=== PATIENT | female | born 1960 | race African-American/Black ===

== ENCOUNTER 2021-01-03 10:13 | Inpatient (IN) | payer BC, OTHER ==
[~2021-01-03] VITALS: Ht 166.4 cm; Wt 122.4 kg
--- NOTE | 2021-01-03 10:27 | PHYS DOC ---
Past History Past Medical History: Hypertension (CHANCE PALACIOS Efrain RAGSDALE) Past Surgical History: No Surgical History (CHANCE PALACIOS ) Smoking: Non-smoker Alcohol Use: Rarely Drug Use: None (CHANCE PALACIOS ) General Adult EDM: Chief Complaint: OTHER COMPLAINTS HPI: HPI: Patient is a 60-year-old female who presents to the emergency department for a 3-week history of chest pain. Patient reports that she experiences intermittent right-sided chest pain that radiates to her neck. The pain lasts approximately 15 minutes and is resolved after she places an ice pack on her chest. Patient describes the pain as an ache. She denies experiencing shortness of breath, nausea, vomiting or dizziness associated with her chest pain. She is not having the pain currently. Patient has an appointment with Dr. Rubio in 2 days for reevaluation for her chest pain. Patient has a history of hypertension. She states that her mother of a heart attack in her 70s and her sister had a heart attack in her 60s. (JANETH RUSHING APRN) Review of Systems: Review of Systems: 14 body systems of the review of systems have been reviewed. See HPI for pertinent positive and negative responses, otherwise all other systems are negative, nonpertinent or noncontributory (JANETH RUSHING APRN) Allergies: Allergies: Allergies Coded Allergies Type Severity Reaction Last Updated Verified Sulfa (Sulfonamide Antibiotics) Allergy Unknown 01/03/21 Yes (JANETH RUSHING APRN) Physical Exam: PE: Constitutional: Well developed, well nourished, no acute distress, non-toxic appearance. [] HENT: Normocephalic, atraumatic, bilateral external ears normal, oropharynx moist, no oral exudates, nose normal. [] Eyes: PERRL, EOMI, conjunctiva normal, no discharge. [] Neck: Normal range of motion, no stridor Cardiovascular:Heart rate regular rhythm, no murmur [] Lungs & Thorax: Bilateral breath sounds clear to auscultation [] Abdomen: Bowel sounds normal, soft, no tenderness, no masses, obese, no pulsatile masses. [] Skin: Warm, dry, no erythema, no rash. [] Back: Normal range of motion Extremities: No tenderness, no cyanosis, no clubbing, ROM intact, no edema. [] Neurologic: Alert and oriented X 3, normal motor function, normal sensory function, no focal deficits noted. [] Psychologic: Affect normal, judgement normal, mood normal. [] (JANETH RUSHING APRN) Current Patient Data: Labs: Laboratory Tests Test 01/03/21 10:26 White Blood Count 4.8 x10^3/uL Red Blood Count 3.90 x10^6/uL Hemoglobin 11.8 g/dL Hematocrit 36.8 % Mean Corpuscular Volume 94 fL Mean Corpuscular Hemoglobin 30 pg Mean Corpuscular Hemoglobin Concent 32 g/dL Red Cell Distribution Width 15.7 % Platelet Count 272 x10^3/uL Neutrophils (%) (Auto) 72 % Lymphocytes (%) (Auto) 21 % Monocytes (%) (Auto) 5 % Eosinophils (%) (Auto) 1 % Basophils (%) (Auto) 1 % Neutrophils # (Auto) 3.5 x10^3uL Lymphocytes # (Auto) 1.0 x10^3/uL Monocytes # (Auto) 0.3 x10^3/uL Eosinophils # (Auto) 0.0 x10^3/uL Basophils # (Auto) 0.0 x10^3/uL Urine Collection Type Unknown Urine Color Straw Urine Clarity Clear Urine pH 7.5 Urine Specific [place] 1.020 Urine Protein 100 mg/dl Urine Glucose (UA) Neg mg/dL Urine Ketones (Stick) Neg mg/dL Urine Blood Neg Urine Nitrite Neg Urine Bilirubin Neg Urine Urobilinogen Dipstick 0.2 mg/dL Urine Leukocyte Esterase Mod Urine RBC 0 /HPF Urine WBC 5-10 /HPF Urine Squamous Epithelial Cells Occ /LPF Urine Transitional Epithelial Cells Occ /LPF Urine Bacteria 0 /HPF Sodium Level 142 mmol/L Potassium Level 4.0 mmol/L Chloride Level 104 mmol/L Carbon Dioxide Level 29 mmol/L Anion Gap 9 Blood Urea Nitrogen 16 mg/dL Creatinine 1.2 mg/dL Estimated GFR (Cockcroft-Gault) 55.4 BUN/Creatinine Ratio 13 Glucose Level 92 mg/dL Calcium Level 9.4 mg/dL Total Bilirubin 0.5 mg/dL Aspartate Amino Transf (AST/SGOT) 15 U/L Alanine Aminotransferase (ALT/SGPT) 23 U/L Alkaline Phosphatase 84 U/L Troponin I Quantitative < 0.017 ng/mL Total Protein 8.3 g/dL Albumin 3.9 g/dL Albumin/Globulin Ratio 0.9 Current Medications Medications (Trade) Dose Ordered Sig/Gretchen Route PRN Reason Start Time Stop Time Status Last Admin Dose Admin Aspirin (Aspirin Chewable) 324 mg 1X ONCE PO 01/03/21 10:30 01/03/21 10:33 DC 01/03/21 10:47 Clonidine HCl (Catapres) 0.1 mg 1X ONCE PO 01/03/21 10:45 01/03/21 10:46 DC 01/03/21 10:46 Labetalol HCl (Normodyne) 10 mg 1X ONCE IVP 01/03/21 10:45 01/03/21 10:46 DC 01/03/21 10:47 Hydralazine HCl (Apresoline) 10 mg 1X ONCE IV 01/03/21 11:15 01/03/21 11:21 DC 01/03/21 11:23 (JANETH RUSHING APRN) EKG: EKG: EKG performed by ER staff at 1027 shows sinus rhythm with a rate of 69, QTC of 394, no STEMI read by Dr. Palacios at 1035 [] (JANETH RUSHING APRN) Radiology/Procedures: Radiology/Procedures: [] (JANETH RUSHING APRN) Heart Score: C/O Chest Pain: Yes HEART Score for Chest Pain: HEART Score for Chest Pain Response (Comments) Value History Slighlty/Non-Suspicious 0 ECG Normal 0 Age >45 - < 65 1 Risk Factors >3 Risk Factors or Hx CAD 2 Troponin < Normal Limit 0 Total 3 Risk Factors: Risk Factors: DM, Current or recent (<one month) smoker, HTN, HLP, family history of CAD, obesity. Risk Scores: Score 0 - 3: 2.5% MACE over next 6 weeks - Discharge Home Score 4 - 6: 20.3% MACE over next 6 weeks - Admit for Clinical Observation Score 7 - 10: 72.7% MACE over next 6 weeks - Early Invasive Strategies (JANETH RUSHING APRN) Course & Med Decision Making: Course & Med Decision Making Pertinent Labs and Imaging studies reviewed. (See chart for details) Patient presents to the emergency department for intermittent chest pain x3 weeks. Work-up in the ER consisted of blood work, EKG, chest x-ray. Patient is not having chest pain currently while in the ER. Patient was treated with aspirin. Patient's blood pressure was elevated in the emergency department. She was given hydralazine, labetalol and clonidine and her blood pressure remained 217/116. Patient's heart score is 3. Her chest x-ray showed mild diffuse interstitial prominence. Patient's urinalysis shows 5-10 WBCs, moderate leukocytes but moderate epithelial cells and no bacteria likely contaminated. Patient states that she takes atenolol, clonidine and a diuretic but daughter states that she has not been taking her clonidine. I discussed patient's case with Dr. Sanford and he agreed to admit the patient under his services. I discussed patient's findings with her and her daughter and they are agreeable to admission . Orders placed. Care transferred at this time 1149. (JANETH RUSHING APRN) Dragon Disclaimer: Ignacia Disclaimer: This electronic medical record was generated, in whole or in part, using a voice recognition dictation system. (JANETH RUSHING APRN) Departure Departure: Impression: Primary Impression: Labile hypertension Additional Impression: Renal insufficiency Disposition: ADMITTED INPATIENT Admitting Physician: Giovanni Sanford (JANETH RUSHING APRN) Admitting Physician: Giovanni Sanford (CHANCE PALACIOS DO) Condition: STABLE Referrals: ASHLEY VAUGHAN (PCP) Attending Signature Attending Signature I have reviewed the PA/VISITING PROFESSOR's note and plan of care. I was available for consultation as needed during the patient's visit in the emergency department. I agree with the clinical impression, plan, and disposition. (CHANCE PALACIOS DO) JANETH RUSHING APRN Jan 03, 2021 10:27 CHANCE PALACIOS DO Jan 03, 2021 13:39
[2021-01-03] MEDS ORDERED: ASPIRIN CHEWABLE 81 MG TABLET. PO ONE (10:30)
--- NOTE | 2021-01-03 10:42 | EKG ---
[address] [address] Test Date: 2021-01-03 Test Time: 10:27:33 Pat Name: BRANT CORDON Department: Room: Gender: F Security Coordinator: SATISH : 1960 Requested By: JANETH RUSHING Order Number: [id number] Reading MD: Nicho Larios Measurements Intervals [place] Rate: 69 P: 51 DC: 138 QRS: 0 QRSD: 88 T: 54 QT: 366 QTc: 394 Interpretive Statements SINUS RHYTHM LEFTWARD AXIS Electronically Signed On 01-04-2021 16:01:41 CDT by Nicho Larios
[2021-01-03] MEDS ORDERED: cloNIDine HCL 0.1 MG TABLET PO ONE (10:45)
[2021-01-03] MEDS ORDERED: LABETALOL 20 MG/4 ML DISP.SYRIN. IVP ONE (10:45)
--- NOTE | 2021-01-03 11:02 | RAD ---
EXAM: Chest, single view. HISTORY: Chest pain. COMPARISON: None. FINDINGS: A frontal view of the chest obtained. There is mild diffuse increased interstitial opacity. There is no consolidation, pleural effusion or pneumothorax. There is a prominent cardiac silhouette , likely accentuated due to portable technique. There are surgical clips overlying the neck. IMPRESSION: Mild diffuse interstitial prominence without curtis congestion. No consolidated infiltrate is seen. Electronically signed by: Ciera Self MD (01/03/2021 11:00 AM) [id number]
[2021-01-03 11:03] LABS: CALCIUM 9.4 mg/dL (8.5-10.1); CREATININE 1.2 mg/dL (0.6-1.0); GFR 55.4
[2021-01-03 11:04] LABS: BASO % 1 % (0-3); EOS % 1 % (0-3); HEMATOCRIT 36.8 % (36.0-47.0); HEMOGLOBIN 11.8 g/dL (12.0-15.5); LYMPH % 21 % (24-48); MEAN CORPUSCULAR HEMOGLOBIN 30 pg (25-35); MEAN CORPUSCULAR HGB CONC 32 g/dL (31-37); MEAN CORPUSCULAR VOLUME 94 fL (79-100); MONO # 0.3 x10^3/uL (0.0-1.1); MONO % 5 % (0-9); NEUT # 3.5 x10^3uL (1.8-7.7); NEUT % 72 % (31-73); PLATELET COUNT 272 x10^3/uL (140-400); RED CELL DISTRIBUTION WIDTH 15.7 % (11.5-14.5); WHITE BLOOD COUNT 4.8 x10^3/uL (4.0-11.0)
[2021-01-03 11:07] LABS: BILIRUBIN,URINE NEG (NEG); CLARITY,URINE CLEAR; COLOR,URINE STRAW; GLUCOSE,URINE NEG (NEG); NITRITE,URINE NEG (NEG); RBC,URINE 0 /HPF (0-2); UROBILINOGEN,URINE 0.2 mg/dL (0.2 mg/dL)
[2021-01-03 11:08] LABS: ALBUMIN 3.9 g/dL (3.4-5.0); ALBUMIN/GLOBULIN RATIO 0.9 (1.0-1.7); BACTERIA,URINE 0 /HPF (0-FEW); SQUAMOUS EPITHELIAL CELL,UR OCC /LPF; TOTAL BILIRUBIN 0.5 mg/dL (0.2-1.0); TOTAL PROTEIN 8.3 g/dL (6.4-8.2)
[2021-01-03] MEDS ORDERED: hydrALAZINE 20 MG/ML VIAL. IV ONE (11:15)
[2021-01-03 13:25] VITALS: BP 164/96
[2021-01-03 15:00] VITALS: BP 176/108
[2021-01-03] MEDS ORDERED: LISI40TA6 PO (15:09)
[2021-01-03] MEDS ORDERED: ATEN50TA PO (15:09)
[2021-01-03] MEDS ORDERED: LEVO125T5 PO (15:09)
[2021-01-03] MEDS ORDERED: AMLO-186 PO (15:09)
[2021-01-03] MEDS ORDERED: LISINOPRIL 20 MG TABLET PO ONE (15:15)
[2021-01-03 19:10] VITALS: BP 174/91
[2021-01-03] MEDS: ATENOLOL 50 MG TABLET PO SCH (20:29)
[2021-01-03 22:52] VITALS: BP 161/102
[2021-01-04 05:38] VITALS: BP 151/94
[2021-01-04] MEDS: LEVOTHYROXINE 125 MCG TABLET PO SCH (06:01)
[2021-01-04 06:19] LABS: BASO % 1 % (0-3); EOS # 0.1 x10^3/uL (0.0-0.7); EOS % 2 % (0-3); HEMATOCRIT 32.1 % (36.0-47.0); HEMOGLOBIN 10.4 g/dL (12.0-15.5); LYMPH # 1.1 x10^3/uL (1.0-4.8); LYMPH % 30 % (24-48); MEAN CORPUSCULAR HEMOGLOBIN 30 pg (25-35); MEAN CORPUSCULAR HGB CONC 33 g/dL (31-37); MEAN CORPUSCULAR VOLUME 94 fL (79-100); MONO # 0.3 x10^3/uL (0.0-1.1); MONO % 9 % (0-9); NEUT # 2.1 x10^3uL (1.8-7.7); NEUT % 59 % (31-73); PLATELET COUNT 223 x10^3/uL (140-400); RED BLOOD COUNT 3.42 x10^6/uL (3.50-5.40); RED CELL DISTRIBUTION WIDTH 15.9 % (11.5-14.5); WHITE BLOOD COUNT 3.6 x10^3/uL (4.0-11.0)
[2021-01-04 06:54] LABS: ALBUMIN 3.2 g/dL (3.4-5.0); ALBUMIN/GLOBULIN RATIO 0.8 (1.0-1.7); CALCIUM 8.8 mg/dL (8.5-10.1); CREATININE 1.1 mg/dL (0.6-1.0); GFR 61.3; POTASSIUM 3.7 mmol/L (3.5-5.1); TOTAL BILIRUBIN 0.5 mg/dL (0.2-1.0)
[2021-01-04] MEDS: ATENOLOL 50 MG TABLET PO SCH ×2 (08:44→20:18)
[2021-01-04] MEDS: LISINOPRIL 20 MG TABLET PO SCH (08:45)
--- NOTE | 2021-01-04 08:58 | PDOC2 ---
CARDIAC CONSULT DATE OF CONSULT DOS: DATE: 01/04/21 TIME: 08:53 REASON FOR CONSULT Reason for Consult uncontrolled HTN REFERRING PHYSICIAN Referring Physician Dr. Alba SOURCE Source: Chart review, Patient HPI History of Present Illness This is a 60 yo female who presented secondary to 3 week history of aching pain in her right chest and neck chest. Reports pain to be constant. Used heating pad with some improvement. Blood pressure significantly elevated, which prompted this consult. She denies any dizziness, shortness of breath, palpitations, nausea/vomiting. diaphoresis, or left sided chest pain. No recent illness or injury. No previous cardiac workup. PAST MEDICAL HISTORY Cardiovascular: HTN Endocrine: Hypothyroidism (acquired ) PAST SURGICAL HISTORY Past Surgical History: Total knee replacement (right ), Other (thyroidectomy, left ankle surgey with hardware ) FAMILY HISTORY Family History: Diabetes, Hypertension, Other (leukemia ) SOCIAL HISTORY Smoke: No ALCOHOL: none Drugs: None Lives: Alone CURRENT MEDICATIONS Current Medications Current Medications Aspirin (Aspirin Chewable) 324 mg 1X ONCE PO Last administered on 01/03/21at 10:47; Start 01/03/21 at 10:30; Stop 01/03/21 at 10:33; Status DC Clonidine HCl (Catapres) 0.1 mg 1X ONCE PO Last administered on 01/03/21at 10:46; Start 01/03/21 at 10:45; Stop 01/03/21 at 10:46; Status DC Labetalol HCl (Normodyne) 10 mg 1X ONCE IVP Last administered on 01/03/21at 10:47; Start 01/03/21 at 10:45; Stop 01/03/21 at 10:46; Status DC Hydralazine HCl (Apresoline) 10 mg 1X ONCE IV Last administered on 01/03/21at 11:23; Start 01/03/21 at 11:15; Stop 01/03/21 at 11:21; Status DC Atenolol (Tenormin) 50 mg BID PO Last administered on 01/04/21at 08:44; Start 01/03/21 at 21:00 Lisinopril (Prinivil) 40 mg 1X ONCE PO Last administered on 01/03/21at 15:59; Start 01/03/21 at 15:15; Stop 01/03/21 at 15:21; Status DC Levothyroxine Sodium (Synthroid) 125 mcg DAILY06 PO Last administered on 01/04/21at 06:01; Start 01/04/21 at 06:00 Lisinopril (Prinivil) 40 mg DAILY PO Last administered on 01/04/21at 08:45; Start 01/04/21 at 09:00 Amlodipine Besylate (Norvasc) 10 mg DAILY PO Last administered on 01/04/21at 08:44; Start 01/04/21 at 09:00 Active Scripts Active Reported Amlodipine Besylate 5 Mg Tablet 1 Tab PO DAILY Atenolol (Atenolol) 50 Mg Tablet 50 Mg PO DAILY Lisinopril 40 Mg Tablet 1 Tab PO DAILY Levothyroxine Sodium 125 Mcg Tablet 1 Tab PO DAILY ALLERGIES Allergies: Coded Allergies: Sulfa (Sulfonamide Antibiotics) (Verified Allergy, Unknown, 01/03/21) ROS Review of Systems 14 point ROS conducted with pertinent positives noted above in HPI PHYSICAL EXAM General: Alert, Oriented X3, Cooperative, No acute distress HEENT: Atraumatic Lungs: Clear to auscultation Heart: Regular rate Abdomen: Soft, Other (obese) Extremities: Normal pulses, Other (trace bilateral LE edema ) Skin: No breakdown Neuro: Normal speech, Sensation intact Psych/Mental Status: Mental status NL, Mood NL MUSCULOSKELETAL: Osteoarthritic changes both hands VITALS Vital Signs Vital Signs Date Time Temp Pulse Resp B/P (MAP) Pulse Ox O2 Delivery O2 Flow Rate FiO2 01/04/21 08:45 67 151/94 01/04/21 05:38 97.5 18 97 Room Air LABS LABS Laboratory Tests Test 01/03/21 10:26 01/03/21 12:26 01/04/21 05:41 White Blood Count 4.8 x10^3/uL (4.0-11.0) 3.6 x10^3/uL (4.0-11.0) Red Blood Count 3.90 x10^6/uL (3.50-5.40) 3.42 x10^6/uL (3.50-5.40) Hemoglobin 11.8 g/dL (12.0-15.5) 10.4 g/dL (12.0-15.5) Hematocrit 36.8 % (36.0-47.0) 32.1 % (36.0-47.0) Mean Corpuscular Volume 94 fL (79-100) 94 fL (79-100) Mean Corpuscular Hemoglobin 30 pg (25-35) 30 pg (25-35) Mean Corpuscular Hemoglobin Concent 32 g/dL (31-37) 33 g/dL (31-37) Red Cell Distribution Width 15.7 % (11.5-14.5) 15.9 % (11.5-14.5) Platelet Count 272 x10^3/uL (140-400) 223 x10^3/uL (140-400) Neutrophils (%) (Auto) 72 % (31-73) 59 % (31-73) Lymphocytes (%) (Auto) 21 % (24-48) 30 % (24-48) Monocytes (%) (Auto) 5 % (0-9) 9 % (0-9) Eosinophils (%) (Auto) 1 % (0-3) 2 % (0-3) Basophils (%) (Auto) 1 % (0-3) 1 % (0-3) Neutrophils # (Auto) 3.5 x10^3uL (1.8-7.7) 2.1 x10^3uL (1.8-7.7) Lymphocytes # (Auto) 1.0 x10^3/uL (1.0-4.8) 1.1 x10^3/uL (1.0-4.8) Monocytes # (Auto) 0.3 x10^3/uL (0.0-1.1) 0.3 x10^3/uL (0.0-1.1) Eosinophils # (Auto) 0.0 x10^3/uL (0.0-0.7) 0.1 x10^3/uL (0.0-0.7) Basophils # (Auto) 0.0 x10^3/uL (0.0-0.2) 0.0 x10^3/uL (0.0-0.2) Urine Collection Type Unknown Urine Color Straw Urine Clarity Clear Urine pH 7.5 Urine Specific [place] 1.020 Urine Protein 100 mg/dl (NEG-TRACE) Urine Glucose (UA) Neg mg/dL (NEG) Urine Ketones (Stick) Neg mg/dL (NEG) Urine Blood Neg (NEG) Urine Nitrite Neg (NEG) Urine Bilirubin Neg (NEG) Urine Urobilinogen Dipstick 0.2 mg/dL (0.2 mg/dL) Urine Leukocyte Esterase Mod (NEG) Urine RBC 0 /HPF (0-2) Urine WBC 5-10 /HPF (0-4) Urine Squamous Epithelial Cells Occ /LPF Urine Transitional Epithelial Cells Occ /LPF Urine Bacteria 0 /HPF (0-FEW) Sodium Level 142 mmol/L (136-145) 139 mmol/L (136-145) Potassium Level 4.0 mmol/L (3.5-5.1) 3.7 mmol/L (3.5-5.1) Chloride Level 104 mmol/L (98-107) 104 mmol/L (98-107) Carbon Dioxide Level 29 mmol/L (21-32) 30 mmol/L (21-32) Anion Gap 9 (6-14) 5 (6-14) Blood Urea Nitrogen 16 mg/dL (7-20) 16 mg/dL (7-20) Creatinine 1.2 mg/dL (0.6-1.0) 1.1 mg/dL (0.6-1.0) Estimated GFR (Cockcroft-Gault) 55.4 61.3 BUN/Creatinine Ratio 13 (6-20) 15 (6-20) Glucose Level 92 mg/dL (70-99) 88 mg/dL (70-99) Calcium Level 9.4 mg/dL (8.5-10.1) 8.8 mg/dL (8.5-10.1) Total Bilirubin 0.5 mg/dL (0.2-1.0) 0.5 mg/dL (0.2-1.0) Aspartate Amino Transf (AST/SGOT) 15 U/L (15-37) 14 U/L (15-37) Alanine Aminotransferase (ALT/SGPT) 23 U/L (14-59) 20 U/L (14-59) Alkaline Phosphatase 84 U/L (46-116) 70 U/L (46-116) Troponin I Quantitative < 0.017 ng/mL (0-0.055) Total Protein 8.3 g/dL (6.4-8.2) 7.0 g/dL (6.4-8.2) Albumin 3.9 g/dL (3.4-5.0) 3.2 g/dL (3.4-5.0) Albumin/Globulin Ratio 0.9 (1.0-1.7) 0.8 (1.0-1.7) Coronavirus (COVID-19)(PCR) Not detected (NOT DETECTD) SARS-CoV-2 Antigen (Rapid) Negative (NEGATIVE) ASSESSMENT/PLAN Assessment/Plan 1. Chest pain, atypical; initial trop negative 2. Hypertensive urgency; improved, but remains slightly elevated 3. Hypothyroidism, acquired 4. Leukopenia 5. Obesity 6. GURPREET; noncompliant with CPAP 7. Arrhythmia; 20-beat burst of NSVT noted this am on tele. Recommendations Repeat troponin Add ASA Lipids, TSH, Mg level Echo to assess LV systolic function Add HCTZ Monitor BP trends with adjustment of meds Hydralazine IV PRN Encouraged compliance with home CPAP Outpatient ischemic evaluation ERICA BARAKAT APRN Jan 04, 2021 08:58
[2021-01-04] MEDS ORDERED: hydrALAZINE 20 MG/ML VIAL. IV PRN (09:00)
[2021-01-04] MEDS ORDERED: amLODIPine BESYLATE 10 MG TABLET PO SCH (09:00)
[2021-01-04] MEDS: hydroCHLOROthiazide 25 MG TABLET. PO SCH (09:49)
[2021-01-04 10:53] VITALS: BP 167/98
[2021-01-04 15:08] VITALS: BP 139/81
[2021-01-04 16:16] LABS: THYROID STIM HORMONE (TSH) 0.192 uIU/mL (0.358-3.740)
[2021-01-04 20:27] VITALS: BP 144/85
[2021-01-04 23:15] VITALS: BP 117/74
--- NOTE | 2021-01-05 00:46 | PN ---
DATE: 01/04/2021 SUBJECTIVE: The patient is a 60-year-old female patient, who was admitted with what seemed to be atypical chest pain, and her acute myocardial infarction was ruled out; however, her blood pressure was extremely high and multiple adjustments of her antihypertensive medication was made; however, her blood pressure continues to be suboptimally controlled. She is now on hydrochlorothiazide, amlodipine, lisinopril as well as atenolol; she is, in fact, on 100 mg of atenolol, 40 mg of lisinopril, 10 mg of amlodipine and hydrochlorothiazide. She herself denied any further episode of chest pain. Denied any shortness of breath, orthopnea, paroxysmal nocturnal dyspnea. Denied any swelling of the legs. PHYSICAL EXAMINATION: GENERAL: When I examined her this afternoon, she looked well and was clearly in no apparent respiratory distress. She was somewhat pale, but no jaundice, cyanosis or thyromegaly. No jugular venous distention. No lower limb edema. VITAL SIGNS: Her heart rate was 64, blood pressure was 167/98, temperature 97.8, respiratory rate 20 and oxygen saturation was 99% on room air. HEAD, EYES, EARS, NOSE AND THROAT: Normocephalic, atraumatic. NECK: Supple. HEART: Showed normal first and second heart sounds. No gallop, rub or murmur. CHEST: Clear to auscultation. No crepitation or rhonchi. ABDOMEN: Distended, soft, nontender. NEUROLOGIC: She was grossly intact. LABORATORY DATA: As of this morning showed a white cell count of 3,600, hemoglobin 10, hematocrit 32, MCV 94, platelet count 223,000. Her chemistry showed serum sodium 139, potassium 3.7, chloride 104, bicarbonate 30, anion gap of 5, BUN 16, creatinine 1.1. Estimated GFR was 61 mL per minute. Her glucose was 88, calcium was 8.8, magnesium 2.3. Total bilirubin, AST, ALT, alkaline phosphatase were normal. Total protein 7, albumin was 3.2. She had 2 sets of cardiac enzymes, showed troponin to be less than 0.07, ruling out acute myocardial infarction. ASSESSMENT: Chest pain, atypical; acute myocardial infarction was ruled out. Hypertensive urgency, improved, but still not optimally controlled. Hypothyroidism, for which she is on levothyroxine. She has obstructive sleep apnea. She apparently had an episode of nonsustained ventricular tachycardia noted this morning on the telemetry. She has mild leukopenia. PLAN: My plan is to discontinue amlodipine and start her on Procardia as her heart rate is borderline. She has an order for an echocardiogram and other lab work ordered. KAILA DR: KAILA/christ TID: [id number]
[2021-01-05 05:42] VITALS: BP 139/84
[2021-01-05] MEDS: LEVOTHYROXINE 125 MCG TABLET PO SCH (06:14)
[2021-01-05] MEDS ORDERED: ASPIRIN ENTERIC COATED 81 MG TABLET.DR. PO SCH (08:00)
--- NOTE | 2021-01-05 08:05 | RAD ---
EXAM: Zheng scale and color Doppler renal artery sonogram. HISTORY: Hypertensive urgency. TECHNIQUE: Zheng scale and color Doppler sonographic imaging of the kidneys and renal arteries with sp ectral waveform analysis was performed. COMPARISON: None. FINDINGS: The exam is limited due to patient body habitus. The kidneys are normal in size. No solid o r cystic renal lesion is seen. There is no hydronephrosis. The prevoid bladder volume is 74 cc. There are normal peak systolic velocities within the right renal artery. There is elevated peak systo lic velocity within the mid left renal artery measuring 191 cm/s. There is an upper limits of normal peak systolic velocity within the proximal left renal artery measuring 178 cm/s. IMPRESSION: 1. Doppler findings suggesting greater than 60 percent stenosis involving the mid left renal artery a nd near 60 percent stenosis involving the proximal left renal artery. 2. Doppler findings consistent with less than 60 percent stenosis involving the right renal artery. 3. Unremarkable grayscale evaluation of the kidneys. Electronically signed by: Ciera Self MD (01/05/2021 8:03 AM) [id number]
[2021-01-05] MEDS: hydroCHLOROthiazide 25 MG TABLET. PO SCH (08:48)
[2021-01-05] MEDS: LISINOPRIL 20 MG TABLET PO SCH (08:49)
[2021-01-05] MEDS: ATENOLOL 50 MG TABLET PO SCH (08:49)
--- NOTE | 2021-01-05 09:02 | PDOC ---
ERICA BARAKAT JUAN C 01/05/21 0902: CARDIO Progress Notes Date & Time Date of Service DATE: 01/05/21 TIME: 08:56 Time of Evaluation 08:56 Subjective Notes No chest pain, palpitations, shortness of breath. Vitals Vitals Vital Signs Date Time Temp Pulse Resp B/P (MAP) Pulse Ox O2 Delivery O2 Flow Rate FiO2 01/05/21 08:49 64 139/84 01/05/21 05:42 97.8 18 98 Room Air Weight Weight [ ] Input and Output I.O. Intake and Output 01/05/21 07:00 Intake Total 2080 ml Balance 2080 ml Intake Oral 2080 ml # Voids 3 Laboratory Labs Laboratory Tests Test 01/03/21 10:26 01/03/21 12:26 01/04/21 05:41 White Blood Count 4.8 x10^3/uL (4.0-11.0) 3.6 x10^3/uL (4.0-11.0) Red Blood Count 3.90 x10^6/uL (3.50-5.40) 3.42 x10^6/uL (3.50-5.40) Hemoglobin 11.8 g/dL (12.0-15.5) 10.4 g/dL (12.0-15.5) Hematocrit 36.8 % (36.0-47.0) 32.1 % (36.0-47.0) Mean Corpuscular Volume 94 fL (79-100) 94 fL (79-100) Mean Corpuscular Hemoglobin 30 pg (25-35) 30 pg (25-35) Mean Corpuscular Hemoglobin Concent 32 g/dL (31-37) 33 g/dL (31-37) Red Cell Distribution Width 15.7 % (11.5-14.5) 15.9 % (11.5-14.5) Platelet Count 272 x10^3/uL (140-400) 223 x10^3/uL (140-400) Neutrophils (%) (Auto) 72 % (31-73) 59 % (31-73) Lymphocytes (%) (Auto) 21 % (24-48) 30 % (24-48) Monocytes (%) (Auto) 5 % (0-9) 9 % (0-9) Eosinophils (%) (Auto) 1 % (0-3) 2 % (0-3) Basophils (%) (Auto) 1 % (0-3) 1 % (0-3) Neutrophils # (Auto) 3.5 x10^3uL (1.8-7.7) 2.1 x10^3uL (1.8-7.7) Lymphocytes # (Auto) 1.0 x10^3/uL (1.0-4.8) 1.1 x10^3/uL (1.0-4.8) Monocytes # (Auto) 0.3 x10^3/uL (0.0-1.1) 0.3 x10^3/uL (0.0-1.1) Eosinophils # (Auto) 0.0 x10^3/uL (0.0-0.7) 0.1 x10^3/uL (0.0-0.7) Basophils # (Auto) 0.0 x10^3/uL (0.0-0.2) 0.0 x10^3/uL (0.0-0.2) Urine Collection Type Unknown Urine Color Straw Urine Clarity Clear Urine pH 7.5 Urine Specific [place] 1.020 Urine Protein 100 mg/dl (NEG-TRACE) Urine Glucose (UA) Neg mg/dL (NEG) Urine Ketones (Stick) Neg mg/dL (NEG) Urine Blood Neg (NEG) Urine Nitrite Neg (NEG) Urine Bilirubin Neg (NEG) Urine Urobilinogen Dipstick 0.2 mg/dL (0.2 mg/dL) Urine Leukocyte Esterase Mod (NEG) Urine RBC 0 /HPF (0-2) Urine WBC 5-10 /HPF (0-4) Urine Squamous Epithelial Cells Occ /LPF Urine Transitional Epithelial Cells Occ /LPF Urine Bacteria 0 /HPF (0-FEW) Sodium Level 142 mmol/L (136-145) 139 mmol/L (136-145) Potassium Level 4.0 mmol/L (3.5-5.1) 3.7 mmol/L (3.5-5.1) Chloride Level 104 mmol/L (98-107) 104 mmol/L (98-107) Carbon Dioxide Level 29 mmol/L (21-32) 30 mmol/L (21-32) Anion Gap 9 (6-14) 5 (6-14) Blood Urea Nitrogen 16 mg/dL (7-20) 16 mg/dL (7-20) Creatinine 1.2 mg/dL (0.6-1.0) 1.1 mg/dL (0.6-1.0) Estimated GFR (Cockcroft-Gault) 55.4 61.3 BUN/Creatinine Ratio 13 (6-20) 15 (6-20) Glucose Level 92 mg/dL (70-99) 88 mg/dL (70-99) Calcium Level 9.4 mg/dL (8.5-10.1) 8.8 mg/dL (8.5-10.1) Total Bilirubin 0.5 mg/dL (0.2-1.0) 0.5 mg/dL (0.2-1.0) Aspartate Amino Transf (AST/SGOT) 15 U/L (15-37) 14 U/L (15-37) Alanine Aminotransferase (ALT/SGPT) 23 U/L (14-59) 20 U/L (14-59) Alkaline Phosphatase 84 U/L (46-116) 70 U/L (46-116) Troponin I Quantitative < 0.017 ng/mL (0-0.055) < 0.017 ng/mL (0-0.055) Total Protein 8.3 g/dL (6.4-8.2) 7.0 g/dL (6.4-8.2) Albumin 3.9 g/dL (3.4-5.0) 3.2 g/dL (3.4-5.0) Albumin/Globulin Ratio 0.9 (1.0-1.7) 0.8 (1.0-1.7) Coronavirus (COVID-19)(PCR) Not detected (NOT DETECTD) SARS-CoV-2 Antigen (Rapid) Negative (NEGATIVE) Magnesium Level 2.3 mg/dL (1.8-2.4) Triglycerides Level 54 mg/dL (0-150) Cholesterol Level 196 mg/dL (0-200) LDL Cholesterol, Calculated 147 mg/dL (0-100) VLDL Cholesterol, Calculated 10 mg/dL (0-40) Non-HDL Cholesterol Calculated 157 mg/dL (0-129) HDL Cholesterol 39 mg/dL (40-60) Cholesterol/HDL Ratio 5.0 Thyroid Stimulating Hormone (TSH) 0.192 uIU/mL (0.358-3.740) Microbiology Micro Microbiology 01/03/21 Urine Culture - Final, Complete Physical Exams HEENT: Neck Supple W Full Motion Chest: Symmetric Lungs: Clear to Auscultation Heart: RRR Abdomen: Soft N/T, Other (obese ) Extremities: No Edema Neurology: alert, oriented, follow commands Assessment Assessment 1. Chest pain, atypical; AMI ruled out 2. Hypertensive urgency; now controlled. Renal duplex with evidence of moderate left JOHNY 3. Hyperlipidemia; LDL 147 4. Hypothyroidism, acquired 5. Leukopenia 6. Obesity 7. GURPREET; noncompliant with CPAP 8. Arrhythmia; 20-beat burst of NSVT noted on tele. None further Recommendations ASA therapy Add statin Continue BB Outpatient echo to assess LV systolic function Continue current antiHTN therapy Encouraged compliance with home CPAP Outpatient ischemic evaluation Follow up in our office as scheduled. MARTHA MASCORRO MD 01/06/21 1704: CARDIO Progress Notes Assessment Assessment Patient seen and examined on 01/05/2021. I agree with our nurse practitioners assessment and plan. Chest pain, atypical; AMI ruled out. Continue medical treatment. Outpatient ischemia evaluation. Hypertensive urgency; now controlled. Renal duplex with evidence of moderate left JOHNY Hyperlipidemia; LDL 147. Adding a statin. Hypothyroidism, acquired Leukopenia Obesity GURPREET; noncompliant with CPAP Arrhythmia; 20-beat burst of NSVT noted on tele. None further. Continue beta- freddy. Outpatient followup. ERICA BARAKAT APRN Jan 05, 2021 09:02 MARTHA MASCORRO MD Jan 06, 2021 17:04
[2021-01-05 10:52] VITALS: BP 151/81
[2021-01-05] MEDS ORDERED: ATEN100T PO (15:23)
[2021-01-05] MEDS ORDERED: NIFE60TA PO (15:23)
[2021-01-05] MEDS ORDERED: HYDR-2145 PO (15:23)
--- NOTE | 2021-01-05 15:53 | NUR ---
pt discharge instructions reviewed with pt. discharge instructions, education materials, rx and all belongings sent with pt. pt ambulated to car where daughter was waiting.
[2021-01-05] MEDS ORDERED: ATORVASTATIN CALCIUM 20 MG TABLET PO SCH (21:00)
--- NOTE | 2021-01-11 11:30 | HP ---
DATE OF SERVICE: 01/11/2021 ADMIT DATE: 01/03/2021 HISTORY OF PRESENT ILLNESS: The patient is a 60-year-old -[place] female patient who presented to the Emergency Room on 01/03/2021 with complaint of 3 weeks history of chest pain. The patient reports that she is experiencing intermittent right-sided chest pain that radiates to her neck, the pain lasted about 15 minutes and has resolved after she places an ice pack on her chest. She describes the pain as an ache. She denies any shortness of breath, nausea, vomiting, dizziness or diaphoresis. By the time she arrived to the Emergency Room, she denied having any chest pain. She has an appointment with Dr. Cabrera in 2 days for evaluation of her chest pain, does have a history of hypertension and stated that her mother of heart attack in her 70s and sister had heart attack in her 60s. The patient was extensively evaluated in the Emergency Room and has had lab work as well as imaging studies. Her first set of cardiac enzymes showed troponin to be less than 0.017. The patient was admitted to do two more sets of cardiac enzymes and check her fasting lipid profile and consult the Cardiology team. She was also noted to have markedly labile hypertension and her kidney function also was abnormal. PAST MEDICAL HISTORY: Significant for hypertension, hypothyroidism. PAST SURGICAL HISTORY: Significant for right total knee arthroplasty, thyroidectomy. She does have also left ankle surgery with hardware. FAMILY HISTORY: Positive for diabetes, hypertension and leukemia. SOCIAL HISTORY: She lives with her family. She does not smoke, drink alcohol or use recreational drugs. ALLERGIES: SHE IS ALLERGIC TO SULFA DRUGS. MEDICATIONS: She is currently on the following medications: She is on atenolol 100 mg once a day. She was actually on amlodipine 10 mg once a day, lisinopril 40 mg once a day, hydrochlorothiazide 25 mg once a day and levothyroxine sodium 125 mcg once a day. PHYSICAL EXAMINATION: GENERAL: On arrival to the Emergency Room, the patient looked well and was clearly in no apparent respiratory distress. No pallor, jaundice, cyanosis or thyromegaly. No jugular venous distention. No lower limb edema. VITAL SIGNS: Her heart rate was 70, blood pressure was 212/121, temperature was 98.5, respiratory rate was 16 and oxygen saturation was 98% on room air. HEAD, EYES, EARS, NOSE, AND THROAT: Showed normocephalic, atraumatic. NECK: Supple. HEART: Normal first and second heart sounds, no gallop or murmur. CHEST: Clear to auscultation, no crepitation or rhonchi. ABDOMEN: Distended, soft, nontender. NEUROLOGIC: She is awake, alert, responding appropriately. All her cranial nerves are intact. She moves extremities without difficulty. She ambulates without assistance or assistive devices. LABORATORY DATA: On admission showed a serum sodium 142, potassium 4, chloride 104, bicarbonate 29, anion gap of 9, BUN 16, creatinine 1.2. Estimated GFR was 55 mL per minute. Her glucose was 92, calcium was 9.4. Total bilirubin, AST, ALT, alkaline phosphatase were normal. Total protein was 8.3, albumin was 3.9. Her white cell count was 4800, hemoglobin 11.8, hematocrit 36, MCV 94 and platelet count 272,000. Her urinalysis was essentially unremarkable and did have a chest x-ray, which showed that she had mild diffuse interstitial prominence without curtis congestion. No consolidated infiltrate is seen. ASSESSMENT AND PLAN: The patient will be admitted. We will do two more sets of cardiac enzyme, check her fasting lipid profile, consult the Cardiology team and adjust medication to achieve a better control of her blood pressure. KAILA/ALEENA/DEXTER DR: Alexandra TID: [id number]
--- NOTE | 2021-01-11 11:55 | DS ---
DATE OF DISCHARGE: 01/05/2021 HOSPITAL COURSE: The patient is a 60-year-old female patient who was admitted with chest pain that is fairly atypical. She has had 3 sets of cardiac enzymes that ruled out acute myocardial infarction. However, the blood pressure was noted to be extremely high and multiple adjustments were made for her antihypertensive medication including increasing the dose of atenolol to 100 mg and as her blood pressure was suboptimally controlled on amlodipine only, I switched that to nifedipine extended release and was continued on hydrochlorothiazide and the patient did actually very well. Her blood pressure became much better controlled and a decision was made to discharge her home to follow with her primary care physician. PHYSICAL EXAMINATION: GENERAL: On the day of discharge, the patient looked well and was in no apparent respiratory distress. There was no pallor, jaundice, cyanosis or thyromegaly. No jugular venous distention. No limb edema. VITAL SIGNS: Her heart rate was 66, blood pressure 151/81, temperature 97.8, respiratory rate 20, and oxygen saturation was 98% on room air. The rest of clinical examination was stable. LABORATORY DATA: Her lab work on the day of discharge showed a white cell count of 3600, hemoglobin 10, hematocrit 32, MCV 94 and platelet count 223,000. Her chemistry showed a serum sodium of 139, potassium 3.7, chloride 104, bicarbonate 30, anion gap of 5, BUN 16, creatinine 1.1. Estimated GFR was 61 mL per minute. Her glucose was 88, calcium was 8.8. Total bilirubin, AST, ALT, alkaline phosphatase were normal. Total protein was 7, albumin was 3.2. Her fasting lipid profile showed serum triglycerides to be 54, total cholesterol 196, LDL cholesterol was 147, VLDL was 10. Her HDL cholesterol was 39 and the ratio was 5. Her TSH was low at 0.92, normal range 0.358-3.740. DISCHARGE MEDICATIONS: The patient was discharged home to continue on atenolol 100 mg once a day, hydrochlorothiazide 25 mg once a day, nifedipine for Procardia 60 mg once a day. She was on levothyroxine 125 mcg, lisinopril 40 mg once a day. Given her TSH to be almost undetectable, the patient was advised to hold her levothyroxine and follow with her primary care physician as her thyroxine probably needs to be adjusted down. FINAL DISCHARGE DIAGNOSES: 1. Atypical chest pain, acute myocardial infarction was ruled out. 2. Labile hypertension, much better controlled. 3. Hypothyroidism. The patient also thyrotoxic and she was advised to hold her levothyroxine and follow up with her primary care physician. KAILA/JESSICA DR: Alexandra TID: [id number]
== END 2021-01-05 15:58 | disposition home or self-care (01) | DRG 313 ==
LOC: ER 10:13 → 1 SOUTH 11:50
PROVIDERS: ADMIT Hospitalist; ATTEND Hospitalist
DX: R07.89 Other chest pain (principal); Z68.41 Body mass index [BMI] 40.0-44.9, adult; I47.2 Ventricular tachycardia; I16.0 Hypertensive urgency; D72.819 Decreased white blood cell count, unspecified; E66.9 Obesity, unspecified; E78.5 Hyperlipidemia, unspecified; E89.0 Postprocedural hypothyroidism; G47.33 Obstructive sleep apnea (adult) (pediatric); I10 Essential (primary) hypertension; Z96.651 Presence of right artificial knee joint; Z80.6 Family history of leukemia; Z82.49 Family history of ischemic heart disease and other diseases of the circulatory system; Z83.3 Family history of diabetes mellitus; Z91.19 Patient's noncompliance with other medical treatment and regimen; Z88.2 Allergy status to sulfonamides; Z20.822 Contact with and (suspected) exposure to COVID-19
CPT/HCPCS: 36415; 71045; 76770; 80053; 80061; 81001; 83735; 84443; 84484; 85025; 87086; 87426; 93005; 96374; 96375; J0360; J3490; U0003; 99285-25

== ENCOUNTER → 2021-02-17 | Outpatient (CLI) | payer BC ==
[~2021-02-17] MED LIST: AMLO-186 PO; ATEN100T PO; ATEN50TA PO; HYDR-2145 PO; LEVO125T5 PO; LISI40TA6 PO; NIFE60TA PO
== END ==
LOC: LAB 11:39
PROVIDERS: ATTEND Internal Medicine Gastroenterology
DX: Z01.812 Encounter for preprocedural laboratory examination (principal); Z20.822 Contact with and (suspected) exposure to COVID-19; Z12.11 Encounter for screening for malignant neoplasm of colon
CPT/HCPCS: U0003